=== PATIENT | male | born 1990 | race Caucasian/White ===

== ENCOUNTER 2021-08-24 14:11 | Emergency (ER) | payer BC, MEDICARE ==
[~2021-08-24] VITALS: Ht 165.1 cm; Wt 111.1 kg
[2021-08-24 15:04] LABS: BASOPHILS % 0.3 % (0.0-1.0); EOSINOPHILS # (AUTO) 0.1 (0.0-0.4); EOSINOPHILS % 1.3 % (0.0-6.0); HEMATOCRIT 47.5 % (38.2-49.6); HEMOGLOBIN 15.9 g/dL (14.0-18.0); LYMPHOCYTES # (AUTO) 2.7 (1.0-3.2); LYMPHOCYTES % 34.9 % (18.0-39.1); MEAN CORPUSCULAR HEMOGLOBIN 29.2 pg (28-32); MEAN CORPUSCULAR HGB CONC 33.5 g/dL (31-35); MEAN CORPUSCULAR VOLUME 87.3 fL (81-99); MONOCYTES # (AUTO) 0.6 (0.2-0.8); MONOCYTES % 7.2 % (4.4-11.3); NEUTROPHILS # (AUTO) 4.4 (2.1-6.9); PLATELET COUNT 246 x10e3/uL (140-360); RED BLOOD COUNT 5.44 x10e6/uL (4.3-5.7); RED CELL DISTRIBUTION WIDTH 13.4 % (11.7-14.4)
[2021-08-24 15:22] LABS: ANION GAP 12.7 mmol/L (8-16); CALCIUM 9.1 mg/dL (8.4-10.2); LIPASE 29 U/L (8-78); POTASSIUM 3.7 mmol/L (3.5-5.1)
[2021-08-24 15:35] LABS: ALBUMIN/GLOBULIN RATIO 1.2 (0.8-2.0); CREATININE, SERUM 1.1 mg/dL (0.72-1.25)
[2021-08-24] MEDS ORDERED: IOPAMIDOL 370 MG/ML 200 ML INFUS..BTL INJ ONE (16:13)
[2021-08-24] MEDS ORDERED: SODIUM CHLORIDE 0.9% 50ML 50 ML ONE (16:13)
[2021-08-24] MEDS ORDERED: CIPRO500 MG PO (17:05)
[2021-08-24] MEDS ORDERED: METRONIDAZOLE500 MG PO (17:05)
== END 2021-08-24 17:54 | disposition home or self-care (01) ==
LOC: ER 14:42
DX: R10.11 Right upper quadrant pain (principal); K40.20 Bilateral inguinal hernia, without obstruction or gangrene, not specified as recurrent; K52.9 Noninfective gastroenteritis and colitis, unspecified; H54.8 Legal blindness, as defined in USA; Z20.822 Contact with and (suspected) exposure to COVID-19
CPT/HCPCS: 36415; 71045; 74177; 80053; 83690; 84484; 85025; 99284; Q9967; U0002

== ENCOUNTER 2021-10-30 23:33 | Emergency (ER) | payer MEDICARE ==
[~2021-10-30] VITALS: Ht 165.1 cm; Wt 111.1 kg
[~2021-10-30 23:33] MED LIST: CIPRO500 MG PO; METRONIDAZOLE500 MG PO
[2021-10-30] MEDS ORDERED: KETOROLAC TROMETHAMINE 30 MG/ML VIAL IV STA (23:41)
[2021-10-30] MEDS ORDERED: ONDANSETRON HCL INJ 2MG/ML 2ML 2 MG/ML VIAL IV STA (23:41)
[2021-10-30 23:53] LABS: BASOPHILS % 0.2 % (0.0-1.0); EOSINOPHILS % 0.3 % (0.0-6.0); HEMATOCRIT 51.1 % (38.2-49.6); HEMOGLOBIN 16.5 g/dL (14.0-18.0); LYMPHOCYTES % 18.7 % (18.0-39.1); MEAN CORPUSCULAR HEMOGLOBIN 28.5 pg (28-32); MEAN CORPUSCULAR HGB CONC 32.3 g/dL (31-35); MEAN CORPUSCULAR VOLUME 88.4 fL (81-99); MONOCYTES # (AUTO) 0.5 (0.2-0.8); NEUTROPHILS # (AUTO) 8.1 (2.1-6.9); NEUTROPHILS % 75.5 % (38.7-80.0); PLATELET COUNT 239 x10e3/uL (140-360); RED BLOOD COUNT 5.78 x10e6/uL (4.3-5.7); RED CELL DISTRIBUTION WIDTH 13.3 % (11.7-14.4)
[2021-10-31 00:11] LABS: AMYLASE 66 U/L (25-125); LIPASE 24 U/L (8-78)
[2021-10-31 00:17] LABS: ALBUMIN 4.4 g/dL (3.5-5.0); ALBUMIN/GLOBULIN RATIO 1.5 (0.8-2.0); ANION GAP 14.8 mmol/L (8-16); CALCIUM 9.2 mg/dL (8.4-10.2); CREATININE, SERUM 1.4 mg/dL (0.72-1.25); POTASSIUM 3.8 mmol/L (3.5-5.1)
[2021-10-31 00:26] LABS: CLARITY,URINE CLOUDY (CLEAR); COLOR,URINE YELLOW (YELLOW); KETONES,URINE TRACE (NEGATIVE); LEUKOCYTE ESTERASE ,URINE NEGATIVE (NEGATIVE); NITRITE,URINE NEGATIVE (NEGATIVE); PROTEIN,URINE DIPSTICK 1+ (NEGATIVE); URINE UROBILINOGEN 0.2 mg/dL (0.2 - 1)
[2021-10-31 00:32] LABS: AMORPHOUS SEDIMENT,URINE FEW (FEW); BACTERIA,URINE FEW /HPF; EPITHELIAL CELLS,URINE MODERATE /LPF; RBC,URINE >50 /HPF (0-5)
[2021-10-31] MEDS ORDERED: IOPAMIDOL 370 MG/ML 100 ML INFUS..BTL INJ ONE (00:51)
== END 2021-10-31 02:25 | disposition home or self-care (01) ==
LOC: ER 23:36
DX: R10.10 Upper abdominal pain, unspecified (principal); N20.0 Calculus of kidney; R11.0 Nausea; K76.0 Fatty (change of) liver, not elsewhere classified; H54.8 Legal blindness, as defined in USA
CPT/HCPCS: 36415; 74177; 80053; 81001; 82150; 83690; 85025; 99284; C9113; J1885; J2405; Q9967